=== PATIENT | female | born 1950 | race Caucasian/White ===

== ENCOUNTER 2019-02-11 16:13 | Emergency (ER) | payer OTHER ==
[~2019-02-11] VITALS: Ht 157.5 cm; Wt 62.1 kg
[2019-02-11] MEDS ORDERED: ALPR0.255 PO (16:40)
[2019-02-11] MEDS ORDERED: QUET300T2 PO (16:40)
[2019-02-11] MEDS ORDERED: DULO60CA45 PO (16:40)
[2019-02-11] MEDS ORDERED: OMEP40CA37 PO (16:40)
[2019-02-11] MEDS ORDERED: LAMO200T PO (16:40)
[2019-02-11] MEDS ORDERED: OMEP20TA20 PO (16:41)
--- NOTE | 2019-02-11 18:30 | NUR ---
PT IS IN ROOM # 2B. DR OCHOA EVALUATED THE PT.
--- NOTE | 2019-02-11 19:10 | NUR ---
PT WAS D/C'd TO HOME. D/C INSTRUCTIONS GIVEN TO THE PT BY DR OCHOA. PT WAS NOT PROVIDED WITH CD OF X-RAY IMAGES OF INJURED ARM , BECAUSE PT DID NOT WANT TO WAIT FOR TECHNITIANS TO PRODUCE IT. SHE WAS GOING TO PICK IT UP TOMORROW IN MEDICAL RECORDS DEPARTMENT.
[2019-02-12 08:26] VITALS: BP 135/68
== END 2019-02-12 08:27 | disposition home or self-care (01) ==
LOC: ER 16:13
DX: S62.655A Nondisplaced fracture of middle phalanx of left ring finger, initial encounter for closed fracture (principal); S50.12XA Contusion of left forearm, initial encounter; F31.9 Bipolar disorder, unspecified; Z88.5 Allergy status to narcotic agent; Z79.899 Other long term (current) drug therapy; W01.198A Fall on same level from slipping, tripping and stumbling with subsequent striking against other object, initial encounter; Y93.89 Activity, other specified; Y92.89 Other specified places as the place of occurrence of the external cause; Y99.8 Other external cause status
CPT/HCPCS: 73090; 73140; A4663